=== PATIENT | female | born 1955 | race Caucasian/White ===

== ENCOUNTER 2019-02-17 16:31 | Emergency (ER) | payer MEDICARE, BC ==
[2019-02-17 18:11] VITALS: BP 144/72
--- NOTE | 2019-02-17 18:31 | UC ---
Throat Pain/Nasal Keny HPI - HPI Summary HPI Summary: Per herb counselor: "since last wednesday p/t c/o sore throat, cough and headache. recent exposure to strep from grandson last week. no fever/chils. " -here w/ her granddtr also sick -ST is 10/10 at night. wants to makes ure it's not sterep - History of Current Complaint Chief Complaint: UCRespiratory Stated Complaint: SORE THROAT/HEADACHE Time Seen by Provider: 02/17/19 18:11 Pain Intensity: 6 - Allergies/Home Medications Allergies/Adverse Reactions: Allergies Allergy/AdvReac Type Severity Reaction Status Date / Time Penicillins Allergy Hives Verified 02/17/19 18:07 Home Medications: Home Medications Albuterol HFA INHALER* [Ventolin HFA Inhaler*] 2 puff INH Q4H PRN 02/17/19 [ History Confirmed 02/17/19] Fluticasone HFA 110 mcg(NF) [Flovent HFA 110 mcg(NF)] 1 puff INH BID 02/17/19 [ History Confirmed 02/17/19] Oxazepam CAP* [Serax CAP*] 15 mg PO BEDTIME 02/17/19 [History Confirmed 02/17/19 ] Sertraline* [Zoloft*] 50 mg PO BEDTIME 02/17/19 [History Confirmed 02/17/19] PMH/Surg Hx/FS Hx/Imm Hx Previously Healthy: Yes Psychological History: Depression - Surgical History Surgical History: None - Family History Known Family History: Positive: Hypertension - Social History Alcohol Use: None Substance Use Type: None Smoking Status (MU): Never Smoked Tobacco Review of Systems All Other Systems Reviewed And Are Negative: Yes Constitutional: Positive: Chills, Fatigue Skin: Positive: Negative. Negative: Rash Eyes: Positive: Negative ENT: Positive: Sore Throat, Ear Ache, Nasal Discharge Respiratory: Positive: Negative. Negative: Shortness Of Breath Cardiovascular: Positive: Negative Gastrointestinal: Positive: Negative Genitourinary: Positive: Negative Motor: Positive: Negative Neurovascular: Positive: Negative Musculoskeletal: Positive: Negative Neurological: Positive: Negative Psychological: Positive: Negative Is Patient Immunocompromised?: No Physical Exam Triage Information Reviewed: Yes Appearance: Well-Appearing, No Pain Distress, Well-Nourished Vital Signs: Initial Vital Signs Temp 99.4 F 02/17/19 18:09 Pulse 80 02/17/19 18:09 Resp 16 02/17/19 18:09 BP 144/72 02/17/19 18:09 Pulse Ox 98 02/17/19 18:09 Vital Signs Reviewed: Yes Eye Exam: Normal ENT: Positive: Pharyngeal erythema - + mild erythema, no exudate. patent, TMs normal, Uvula midline. Negative: Nasal congestion, Nasal drainage, TM bulging, TM dull, TM red, Sinus tenderness Dental Exam: Normal Neck exam: Normal Neck: Positive: Supple, Nontender, No Lymphadenopathy Respiratory Exam: Normal Respiratory: Positive: Lungs clear, Normal breath sounds, No respiratory distress, No accessory muscle use. Negative: Crackles, Rhonchi, Stridor, Wheezing Cardiovascular Exam: Normal Cardiovascular: Positive: RRR, No Murmur, Pulses Normal Abdominal Exam: Normal Musculoskeletal Exam: Normal Neurological Exam: Normal Psychological Exam: Normal Skin Exam: Normal Skin: Negative: Rashes Throat Pain/Nasal Course/Dx - Course Course Of Treatment: -strep neg -BP high b/c illness - Differential Dx/Diagnosis Differential Diagnosis/HQI/PQRI: Laryngitis, Pharyngitis, URI Provider Diagnosis: Upper respiratory infection Discharge - Sign-Out/Discharge Documenting (check all that apply): Patient Departure All imaging exams completed and their final reports reviewed: No Studies - Discharge Plan Condition: Stable Disposition: HOME Patient Education Materials: Upper Respiratory Infection (DC) Referrals: Mesha Krishnan MD [Primary Care Provider] - Additional Instructions: Strep is negative. Increase fluids and rest. follow up sooner if your symptoms worsen. - Billing Disposition and Condition Condition: STABLE Disposition: Home
== END 2019-02-17 18:57 | disposition home or self-care (01) ==
LOC: UCCORT 16:31
DX: J06.9 Acute upper respiratory infection, unspecified (principal); F32.9 Major depressive disorder, single episode, unspecified; Z79.899 Other long term (current) drug therapy
CPT/HCPCS: 87651; 99201; G0463

== ENCOUNTER 2019-08-06 09:01 | Emergency (ER) | payer MEDICARE, BC ==
--- OUTSIDE RECORDS SUMMARY | 2019-08-06 09:35 | XMS REPORT | Continuity of Care Document ---
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 Education/Training Program Problems Active Problems Provider Date Essential hypertension Jamila Montes PA-C Onset: 08/06/2015 Note: high-renin Hyperlipidemia Jamila Montes PA-C Onset: 08/06/2015 Note: Sep 2016 LDL 80 HDL 73 chol 171 (LDL goal < 130) Depressive disorder Jamila Montes PA-C Onset: 08/06/2015 Old torn meniscus of knee Jamila Montes PA-C Onset: 08/06/2015 Note: L; ortho Radial styloid tenosynovitis Jamila Montes PA-C Onset: 08/06/2015 Note: R; De Quervain tenosynovitis Panic disorder Jamila Montes PA-C Onset: 08/06/2015 Chronic rhinitis Jamila Montes PA-C Onset: 08/06/2015 Note: mixed- allergic and vasomotor Chronic obstructive lung disease Jamila Montes PA-C Onset: 08/06/2015 Note: 2012 FEV1/FVC 0.6 Gastroesophageal reflux disease Jamila Montes PA-C Onset: 08/06/2015 Adult health examination Jamila Montes PA-C Onset: 08/06/2015 Note: iFOBT 2013 (kit given Jul 2015). 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 D November Vitamin D deficiency Jamila Montes PA-C Onset: 02/04/2016 Note: November 2016 D 34 Mild intermittent asthma Mesha Krishnan MD Onset: 03/07/2018 Anxiety state Mesha Krishnan MD Onset: 03/07/2018 Acute upper respiratory infection, unspecified Mesha Krishnan MD Onset: 03/07 Social History Type Date Description Comments Sex Unknown Tobacco Use Start: Unknown End: Former Cigarette Smoker Unknown ETOH Use Denies alcohol use Recreational Drug Use Denies Drug Use Tobacco Use Start: Unknown Patient denies history of smoking Smoking Status Reviewed: 07/26/19 Patient denies history of smoking Allergies, Adverse Reactions, Alerts Active Allergies Reaction Severity Comments Date Advair Diskus Palpations 08/05/2015 Buspirone 08/05/2015 Macrolides and Ketolides 08/05/2015 Penicillins 08/05/2015 Contrast Dye 08/05/2015 Medications Active Medications SIG Qnty Indications Ordering Date Provider Sertraline HCL 1 by mouth every 90tabs [place], 07/26/2019 25mg day MD Stacy, Tablets PHD Cheratussin ac take 5 milliliters 105ml R05 Mesha Krishnan, 02/22/2019 every 8 hours as 100-10mg/5ML Syrup needed cough Doxycycline take one twice a 20caps R05 Mesha Krishnan, 02/22/2019 Monohydrate day MD 100mg Capsules Proair HFA take 1 or 2 puffs 8.500gm R06.2 Mesha Krishnan, 02/22/2019 108(90Base) 20 min before mcg/Act Aerosol exercise Ergocalciferol take one a week 12caps E55.9 Mesha Krishnan, 12/09/2018 [id number] Capsules Atorvastatin Calcium take 1 tablet by 90tabs E78.5 Mesha Krishnan, 2015 mouth at bedtime 10mg Tablets Oxazepam 1 by mouth three 90caps F41.0 [place], 08/06/2015 15mg Capsules times a day as MD Stacy, needed anxiety or PHD insomnia, mdd 3#, Reference # [id number] Albuterol Sulfate nebulized every 75ml Aravind Molina, 08/05/2015 4-6 hours as (2.5mg/3ML) 0.083% needed Nebulizer Cetirizine HCL 1 by mouth every Unknown 10mg day Chewtabs Flovent HFA inhale 1 puff by 12gm Mesha Krishnan, 110mcg/Act mouth twice a day Aerosol History Medications Prednisone 2 tabs (40 mg) 10tabs R06.2 Mesha Krishnan MD 02/22/2019 - 20mg daily for 5 03/01/2019 Tablets days Immunizations CPT Code Status Date Vaccine Lot # [id number] Given 07/26/2019 Pneumovax Injection [id number] 31294 Given 07/03/2019 Influenza Vaccine, Inactivated, Subunit, Adjuvanted, For Intrmusc 41069 Given 06/29/2019 Influenza Virus Vaccine, Quadrivalent, 36 Mos+, [id number] 62258 Given 06/30/2018 Influenza High Dose [id number] 20974 Given 04/22/2017 Pneumococcal Conjugate Vaccine 13 Valent For [id number] Intramuscular Use 66331 Given 02/11/2017 Tdap injection [id number] 28649 Given 06/25/2016 Influenza Virus Vaccine Split Virus Use For Individual 3Yr Older [id number] Given 06/24/2015 Influenza Vaccine (Fluzone) Age 3 And Older U-Pneum Given 07/15/2011 Pneumococcal,Unspecified [id number] U-Pneum Given 09/20/2010 Pneumococcal,Unspecified [id number] 83907 Given 07/04/2008 flu vaccination U-Td Given 09/20/2006 Td(Adult),Unspecified Vital Signs Date Vital Result Comment 07/26/2019 8:57am BP Systolic Sitting Right Arm 140 mmHg BP Diastolic Sitting Right Arm 76 mmHg Body Temperature 97.0 F Heart Rate 76 /min Respiratory Rate 18 /min Height 65.75 inches 5'5.75" Weight 178.00 lb BMI (Body Mass Index) 28.9 kg/m2 BSA (Body Surface Area) 1.90 m2 [place] body weight in kilograms 58 kg O2 % BldC Oximetry 95 % 03/01/2019 9:06am BP Systolic Sitting Left Arm 124 mmHg BP Diastolic Sitting Left Arm 76 mmHg Body Temperature 97.6 F Heart Rate 67 /min Respiratory Rate 18 /min Height 65.75 inches 5'5.75" Weight 180.00 lb BMI (Body Mass Index) 29.3 kg/m2 BSA (Body Surface Area) 1.91 m2 [place] body weight in kilograms 58 kg O2 % BldC Oximetry 98 % Ra Results Test Acquired Date Facility Test Result H/L Range Note LDL Cholesterol 07/19/2019 [facility] Cholesterol 206 mg/dL High <200 1, [address] [place] [address] [phone] Triglycerides 77 mg/dL <150 3 HDL Cholesterol 87 mg/dL >40 4 LDL-Cholesterol 104 mg/dL < 100 5 CBC W/Automated 07/19/2019 [facility] White Blood 4.7 K/uL Normal 3.1-10.[address] [place] [address] [phone] Red Blood Count 4.86 M/uL Normal 3.90-5.40 Hemoglobin 14.2 gm/dL Normal 11.6-15.8 Hematocrit 44.5 % Normal 36.0-46.1 Mean Cell Volume 91.6 fl Normal 80.9-99.0 Mean Corpuscular HGB 29.2 pg Normal 25.9-32.7 Mean Corpuscular HGB Conc 31.9 g/dL Normal 30.8-34.3 Platelet Count 242 K/uL Normal 155-360 Red Cell Distri Width SD 39.3 fl Normal 36-47 Red Cell Distri Width %CV 11.7 % Normal 11.7-14.4 Mean Platelet Volume 11.4 fl Normal 8.9-12.4 Neut% 52.5 % Normal 40.4-72.8 Lymph % 34.5 % Normal 20.0-42.0 [place] % 8.0 % Normal 4.3-13.2 Eo% 4.0 % Normal 0.0-6.6 Bas% 0.8 % Normal 0.0-1.1 Immature Grans 0.2 % Normal 0.0-5.0 NRBC % 0.0 /100WBC < 10/ 100 WBC Neut# 2.48 K/uL Normal 1.8-7.0 Lymph # 1.63 K/uL Normal 1.0-4.0 [place] # 0.38 K/uL Normal 0.3-0.9 Eos # 0.19 K/uL Normal 0.0-0.5 Baso # 0.04 K/uL Normal 0.0-0.1 Immature Grans Absolute 0.01 K/uL NRBC # 0.00 K/uL Comprehensive 07/19/2019 [facility] Glucose 97 mg/dL Normal 74-106 Metabolic Panel [address] [place] [address] [phone] BUN 16 mg/dL Normal 7-18 Creatinine 1.1 mg/dL Normal 0.6-1.3 Glom Filtration Rate, Estimate 53 mL/min >60 If >60 mL/min >60 6 BUN/Creat 14.5 ratio Sodium 140 mmol/L Normal 136-145 Potassium 4.7 mmol/L Normal 3.5-5.1 Chloride 105 mmol/L Normal 98-107 Carbon Dioxide 34 mmol/L High 21-32 Anion Gap 1 mEq/L Low 8-16 Calcium 9.6 mg/dL Normal 8.5-10.1 Total Protein 7.7 g/dL Normal 6.4-8.2 Albumin 4.0 g/dL Normal 3.4-5.0 Globulin 3.7 g/dL Normal 1.9-4.3 Alb/Glob 1.1 ratio Bilirubin,Total 0.5 mg/dL Normal 0.2-1.0 Sgot/Ast 14 U/L Low 15-37 7 SGPT/Alt 18 U/L Normal 12-78 Alkaline Phosphatase 88 U/L Normal 45-117 Laboratory 07/19/2019 [facility] Vitamin 30.9 ng/mL 30.0-100.0 8 test finding [address] [address] [phone] Laboratory 02/17/2019 [facility] Laboratory Rapid Strep Negative Negative 9 test finding [phone] Molecular 1 E78.5 I10 N18.3 E55.9 2 Reference Guidelines*: Desirable: ........... < 200 mg/dL Borderline High: ..... 200-239 mg/dL High: ................ >= 240 mg/dL * The National Cholesterol Education Program (NCEP) 3 Reference Guidelines*: Normal: ............. < 150 mg/dL Borderline High: .... 150-199 mg/dL High: ............... 200-499 mg/dL Very High: .......... > 500 mg/dL * Source: National Cholesterol Education Program (NCEP) 4 Reference Guidelines*: Low HDL: ..... < 40 mg/dL Normal: ..... 40-60 mg/dL Desirable: ... > 60 mg/dL *The National Cholesterol Education Program(NCEP) 5 Reference Guidelines*: Optimal:........... <100 mg/dL Near Optimal....... 100-129 mg/dL Borderline High.... 130-159 mg/dL High............... 160-189 mg/dL Very High.......... >=190 mg/dL * Source: National Cholesterol Education Program (NCEP) 6 Note: Persistent reduction for 3 months or more in an eGFR <60 mL/min/1.73 m2 defines CKD. Patients with eGFR values >/=60 mL/min/1.73 m2 may also have CKD if evidence of persistent proteinuria is present. The original MDRD equation for estimated GFR is not valid for patients less than 18 years of age. Additional information may be found at www.kdoqi.org. 7 Values below the stated reference ranges of AST and ALT can be seen in normal populations. Clinical correlation is suggested. 8 Vitamin D deficiency has been defined by the Umpire of Medicine and an Endocrine Society practice guideline as a level of serum 25-OH vitamin D less than 20 ng/mL (1,2). The Endocrine Society went on to further define vitamin D insufficiency as a level between 21 and 29 ng/mL (2). 1. IOM (Umpire of Medicine). 2010. Dietary reference intakes for calcium and D. [place]: The National Academies Press. 2. Katarzyna MF, Gerardo TREJO, Gena DUKES, et al. Evaluation, treatment, and prevention of vitamin D deficiency: an Endocrine Society clinical practice guideline. JCEM. 2010; 96(7):1911-30. Performed at: - [address] [id number] Assembly Worker: Hailey Blount MD, Phone: [phone] Transportation Equipment Painter: [id number] Procedures Date Code Description Status 06/20/2018 [id number] Mammogram Completed 09/02/2015 [id number] Mammogram Completed Medical Devices Description No Information Available Encounters Type Date Location Provider Dx Diagnosis Office Visit 03/01/2019 9:00a Primary Care Office Shania Tuttle, R05 Cough MS, CLIENT RELATION SPECIALIST-C, CNM R06.2 Wheezing J02.9 Acute pharyngitis, unspecified Z71.9 Counseling, unspecified Office Visit 02/22/2019 9:30a Primary Care Office Shania Tuttle, , R05 Cough CLIENT RELATION SPECIALIST-C, CNM R06.2 Wheezing J02.9 Acute pharyngitis, unspecified R53.83 Other fatigue Assessments Date Code Description Provider 07/26/2019 I10 Essential (primary) hypertension Shania Tuttle, MS, CLIENT RELATION SPECIALIST-C , CNM 07/26/2019 F41.9 Anxiety disorder, unspecified Shania Tuttle, MS, CLIENT RELATION SPECIALIST-C, CN 07/26/2019 E78.5 Hyperlipidemia, unspecified Shania Tuttle, MS, CLIENT RELATION SPECIALIST-C, CN 07/26/2019 E87.5 Hyperkalemia Shania Tuttle, MS, CLIENT RELATION SPECIALIST-C, CN 07/26/2019 N18.3 Chronic kidney disease, stage 3 Shania Tuttle, MS, CLIENT RELATION SPECIALIST- C, (moderate) CN 07/26/2019 E55.9 Vitamin D deficiency, unspecified Shania Tuttle, MS, CLIENT RELATION SPECIALIST-C, CN 07/26/2019 J45.20 Mild intermittent asthma, Shania Tuttle, MS, CLIENT RELATION SPECIALIST-C, uncomplicated CN 07/26/2019 J44.9 Chronic obstructive pulmonary Shania Tuttle, MS, CLIENT RELATION SPECIALIST-C, disease, unspecified CN 07/26/2019 Z23 Encounter for immunization Shania Tuttle, MS, CLIENT RELATION SPECIALIST-C, CN 07/26/2019 Z12.31 Encounter for screening mammogram Shania Tuttle, MS, CLIENT RELATION SPECIALIST-C, for malignant neoplasm of breast CN 07/26/2019 Z12.11 Encounter for screening for Gagen, Shania, MS, CLIENT RELATION SPECIALIST-C, malignant neoplasm of colon CN 03/01/2019 R05 Cough Marry, Shania, MS, CLIENT RELATION SPECIALIST-C, CN 03/01/2019 R06.2 Wheezing Marry, Shania, MS, CLIENT RELATION SPECIALIST-C, CNM 03/01/2019 J02.9 Acute pharyngitis, unspecified Gagen, Shania, MS, CLIENT RELATION SPECIALIST-C , CN 03/01/2019 Z71.9 Counseling, unspecified Gagen, Shania, MS, CLIENT RELATION SPECIALIST-C, CNM 02/22/2019 R05 Cough Marry, Shania, MS, CLIENT RELATION SPECIALIST-C, CN 02/22/2019 R06.2 Wheezing Shania Tuttle, MS, CLIENT RELATION SPECIALIST-C, CN 02/22/2019 J02.9 Acute pharyngitis, unspecified Gagen, Shania, MS, CLIENT RELATION SPECIALIST-C , CNM 02/22/2019 R53.83 Other fatigue Shania Tuttle, MS, CLIENT RELATION SPECIALIST-C, CNM Plan of Treatment Future Appointment(s):01/24/2020 9:00 am - Shania Tuttle, MS, CLIENT RELATION SPECIALIST-C, CNM at Primary [facility] [id number]/26/2019 - Shania Tuttle, MS, CLIENT RELATION SPECIALIST-C, CNMI10 Essential (primary) hypertensionNew Labs:CBC W/Automated Diff, Scheduled: Comprehensive Metabolic Panel, Scheduled: 01/17/20Comments:--B/P 140/76 -was on medication, lost weight and was able to stop medication in past-continue to monitor-lose weight, low salt dietF41.9 Anxiety disorder, unspecifiedComments:- Taking Zoloft 25 mg po qday. She cut down from 50 mg within the last 6 month -- Has been on oxazepam for years. Patient counseled on Beers recommendation for potentially inappropriate medication use in older adults: due to decreased metabolism, increase risk of cognitive impairment, delirium, falls,fractures, car accidents in older gnunlqH47.5 Hyperlipidemia, unspecifiedNew Labs: Cholesterol, Scheduled: 01/17/20Comments:Total Cholesterol: 212 > 204 > 203 > 206Triglycerides: 91 > 67 > 81 > 77High Density Lipids: 91 &gt ; 90 > 89 > 87Low Density Lipids: 103 > 101 > 98 > 104--Follow a heart healthy diet that emphasizes fruits, vegetables, whole grains, poultry, fish, and nuts. --[place] Heart Association recommends limiting saturated fats to 5-6 % of your daily calories and minimizing the amount of saturated fats and trans fatty acids that you eat. Saturated fats are typically solids at room temperature. Trans fatty acids are found in fried foods, baked goods.--A diet high in fiber can help lower cholesterol. --Decrease sugary food and beverages-- Increase physical activity to 30 minutes on most days, as tolerated-- Non smokers should avoid second hand smoke. --Lose weight --Taking Atorvastatin Calcium 10 mg take 1 tablet by mouth at bzhrxsyB89.5 HyperkalemiaNew Labs: Potassium, Scheduled: 01/17/20Comments:--5.4 > 5.1--Decrease foods with oxfdkbjjoM41.3 Chronic kidney disease, stage 3 (moderate)Comments:--GFR: 53 &gt ; 53 > 48 > 53--Monitor calcium, phosphorus levels, vitamin D level-- Avoid NSAIDs--Maintain a healthy weight-- avoid second hand smoke--Manage medical conditions--Diet- Limit salt intake, eat lean high quality protein ( avoid processed meats), increase vegetables/fruit, complex [id number] Vitamin D deficiency, unspecifiedNew Labs:Vitamin D,25-Hydroxy, Scheduled: 01/16Comments:-- Vitamin D level: 26.3, now 30.9--To take Vitamin D3 gel capsules 2000 IU QDAYJ45.20 Mild intermittent asthma, uncomplicatedComments:-Continue inhalers Proair HFA 108 (90 Base) Albuterol Sulfate (2.5 mg/3ml) 0.083% nebulized every4-6 hours as needed, Flovent HFA 110 mcg/act inhale 1 puff by mouth twice a dayJ44.9 Chronic obstructive pulmonary disease, unspecifiedComments:--monitor--report any [id number] Encounter for immunizationComments:--PPSV23 vaccination today by kqdelW16.31 Encounter for screening mammogram for malignant neoplasm of breastNew Xrays:Mammography, Screening Bilateral Mammogram, Scheduled: 08/09/19Z12.11 Encounter for screening for malignant neoplasm of colonComments:--Agrees to do cologuard -- Refuses colonoscopyAllNew Medication:Sertraline HCL 25 mg - 1 by mouth every dayFollow up:----Return to office in 6 months. Please get fasting labs 1 week prior to office visit. Functional Status Description No Information Available Mental Status Description No Information Available Referrals Description No Information Available
[2019-08-06 09:49] VITALS: BP 146/70
--- NOTE | 2019-08-06 10:07 | UC ---
Eye Complaint HPI - HPI Summary HPI Summary: 63 yo woman with a 1 week hx of left eye drainage and itchy. This has not responded to her oral zyrtec and the use of an anti-allergy eye drop. She has some tenderness in the area around the eye, and now has some mild light sensitivity. Concerned because she is anticipating of a grandchild tomorrow (daughter being induced). No recent eye exam. Reports right eye dominant for years, and is not aware of change of acuity in the left eye over the past week. - History of Current Complaint Chief Complaint: UCEye Stated Complaint: LT EYE COMPLAINT Time Seen by Provider: 08/06/19 09:57 Hx Obtained From: Patient Onset/Duration: Gradual Onset, Lasting Days - 7 Timing: Constant Severity Initially: Mild Severity Currently: Moderate Pain Intensity: 0 Location of Injury: Conjunctiva, Eye Lid (lower), Eye Lid (upper) Character: Dull Aggravating Factor(s): Light - mild photophobia Associated Signs And Symptoms: Positive: Drainage (Purulent) - Risk Factors Penetrating Injury Risk Factor: Negative Globe Rupture Risk Factors: Negative Acute Glaucoma Risk Factors: Negative Optic Artery Occlusion Risk Factors: Negative - Allergies/Home Medications Allergies/Adverse Reactions: Allergies Allergy/AdvReac Type Severity Reaction Status Date / Time Penicillins Allergy Hives Verified 08/06/19 09:47 Home Medications: Home Medications Atorvastatin* [Lipitor*] 10 mg PO BEDTIME 08/06/19 [History Confirmed 08/06/19] PMH/Surg Hx/FS Hx/Imm Hx Previously Healthy: Yes Endocrine History: Dyslipidemia Psychological History: Anxiety - Surgical History Surgical History: None - Family History Known Family History: Positive: Hypertension - Social History 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 Alcohol Use: None Substance Use Type: None Smoking Status (MU): Former Smoker When Did the Patient Quit Smoking/Using Tobacco: 20+ years ago Review of Systems All Other Systems Reviewed And Are Negative: Yes Constitutional: Positive: Negative Skin: Positive: Negative Eyes: Positive: Eye Redness ENT: Positive: Negative Respiratory: Positive: Negative Cardiovascular: Positive: Negative Gastrointestinal: Positive: Negative Genitourinary: Positive: Negative Motor: Positive: Negative Neurovascular: Positive: Negative Musculoskeletal: Positive: Negative Neurological: Positive: Negative Is Patient Immunocompromised?: No Physical Exam Triage Information Reviewed: Yes Appearance: Well-Appearing, No Pain Distress Vital Signs: Initial Vital Signs Temp 99.1 F 08/06/19 09:44 Pulse 77 08/06/19 09:44 Resp 15 08/06/19 09:44 BP 146/70 08/06/19 09:44 Pulse Ox 98 08/06/19 09:44 Eye Exam: Other - Left eye with upper and lower lid with erythema and swelling. No orbital tenderness, no palpable inflammation in the temporal artery. Normal eye movements and tracking. The pupils are equal and reactive WITHOUT photophobia. Eyes: Positive: Conjunctiva Inflamed ENT: Positive: Pharynx normal, TMs normal Neck: Positive: Supple, Nontender, No Lymphadenopathy Respiratory: Positive: Lungs clear, Normal breath sounds Cardiovascular: Positive: RRR, No Murmur Musculoskeletal Exam: Normal Neurological Exam: Normal Psychological Exam: Normal Skin Exam: Normal Eye Complaint Course/Dx - Course Course Of Treatment: Discussed that she has long standing decreae in left eye visual acuity. Clinical findings suggest conjunctivitis and possible pratik-orbital cellulitis, but has a good pupillary response, decreassing the suspicion of ititis. Begin cephalexin and drops, follow up with opthalmologist if not responding. - Differential Dx/Diagnosis Differential Diagnosis/HQI/PQRI: Conjunctivitis, Periorbital Cellulitis, Uveitis Provider Diagnosis: Periorbital cellulitis of left eye Discharge ED - Sign-Out/Discharge Documenting (check all that apply): Patient Departure All imaging exams completed and their final reports reviewed: No Studies - Discharge Plan Condition: Stable Disposition: HOME Prescriptions: Cephalexin CAP* [Keflex 500 CAP*] 500 mg PO TID #15 cap Polymyx/Trimethoprim OPTH* [Polytrim OPHTH*] 1 drop LEFT EYE Q3H #1 btl Patient Education Materials: Periorbital Cellulitis in Adults (ED) Referrals: Shania Tuttle CNM [Primary Care Provider] - Shania Castelan MD [Medical Doctor] - Additional Instructions: begin use of ceophalexin for soft tissue infection around the eyes. use eye drops every 3 ours, snd continue hot compressing. If swelling and drainage and discomfort continue please contact Dr. Herrera's office for an evaluation. - Billing Disposition and Condition Condition: STABLE Disposition: Home
== END 2019-08-06 10:37 | disposition home or self-care (01) ==
LOC: UCCORT 09:01
DX: L03.213 Periorbital cellulitis (principal); E78.5 Hyperlipidemia, unspecified; Z88.0 Allergy status to penicillin; Z79.899 Other long term (current) drug therapy; Z87.891 Personal history of nicotine dependence
CPT/HCPCS: 99212; G0463